=== PATIENT | male | born 1955 | race African-American/Black ===

== ENCOUNTER 2020-07-07 09:38 | Emergency (ER) | payer OTHER ==
[~2020-07-07] VITALS: Ht 182.9 cm; Wt 70.5 kg
[2020-07-07 09:59] VITALS: BP 146/96
[2020-07-07] MEDS ORDERED: METH4TAB2 PO (11:25)
--- NOTE | 2020-07-07 11:26 | PHYS DOC ---
General Adult EDM: Chief Complaint: LOWER EXT PAIN HPI: HPI: Patient is a 64 year old male who presents with here from [facility] for drug and alcohol abuse. Patient states that he has had a sharp shooting pain down the back of his right leg for 2 months since not getting better. Patient denies any kind of injury. He is ambulatory with a steady gait. He denies any numbness or tingling or coolness to the extremity, swelling or joint laxities. Rates his pain an 8 out of 10. Patient states he cannot take any NSAIDs. Review of Systems: Review of Systems: Constitutional: Denies fever or chills. [] Eyes: Denies change in visual acuity. [] HENT: Denies nasal congestion or sore throat. [] Respiratory: Denies cough or shortness of breath. [] Cardiovascular: Denies chest pain or edema. [] GI: Denies abdominal pain, nausea, vomiting, bloody stools or diarrhea. [] : Denies dysuria. [] Musculoskeletal: Denies back pain or joint pain. + Right leg pain [] Integument: Denies rash. [] Neurologic: Denies headache, focal weakness or sensory changes. [] Endocrine: Denies polyuria or polydipsia. [] Lymphatic: Denies swollen glands. [] Psychiatric: Denies depression or anxiety. [] Heart Score: Risk Factors: Risk Factors: DM, Current or recent (<one month) smoker, HTN, HLP, family history of CAD, obesity. Risk Scores: Score 0 - 3: 2.5% MACE over next 6 weeks - Discharge Home Score 4 - 6: 20.3% MACE over next 6 weeks - Admit for Clinical Observation Score 7 - 10: 72.7% MACE over next 6 weeks - Early Invasive Strategies Physical Exam: PE: Constitutional: Well developed, well nourished, no acute distress, non-toxic appearance. [] HENT: Normocephalic, atraumatic, bilateral external ears normal, oropharynx moist, no oral exudates, nose normal. [] Eyes: PERRLA, EOMI, conjunctiva normal, no discharge. [] Neck: Normal range of motion, no tenderness, supple, no stridor. [] Cardiovascular:Heart rate regular rhythm, no murmur [] Lungs & Thorax: Bilateral breath sounds clear to auscultation [] Abdomen: Bowel sounds normal, soft, no tenderness, no masses, no pulsatile masses. [] Skin: Warm, dry, no erythema, no rash. [] Back: No tenderness, no CVA tenderness. [] Extremities: No tenderness, no cyanosis, no clubbing, ROM intact, no edema. [] Neurologic: Alert and oriented X 3, normal motor function, normal sensory function, no focal deficits noted. [] Psychologic: Affect normal, judgement normal, mood normal. Normal physical exam [] EKG: EKG: [] Radiology/Procedures: Radiology/Procedures: [] Course & Med Decision Making: Course & Med Decision Making Pertinent Labs and Imaging studies reviewed. (See chart for details) See HPI. Alert and oriented x4. Ambulatory with a steady gait. No joint laxity or swelling or redness. No swelling to the leg, redness or deformities. Denies any back pain. Pedal pulse strong present. Skin pink warm and dry. Sensations intact. Patient will be given an orthopedic referral and a Medrol Dosepak. I told him he could take Tylenol or use a heating pad if needed. [] Dragon Disclaimer: Dragon Disclaimer: This electronic medical record was generated, in whole or in part, using a voice recognition dictation system. Departure Departure Impression: Primary Impression: Sciatica of right side Disposition: 01 DC HOME SELF CARE/HOMELESS Condition: STABLE Referrals: NO PCP (PCP) MARGIE PERRY MD Patient Instructions: Sciatica with [facility] Additional Instructions: Follow-up with orthopedic. Use a heating pad. Take Tylenol. Take Medrol Dosepak steroid to help with inflammation. If you begin having joint swelling or redness to the extremity return the emergency room. Scripts Methylprednisolone (MEDROL) 4 Mg Tab.ds.pk 1 PKG PO UD, #1 PKG Prov: YADIRA ANNE APRN 07/07/20 YADIRA ANNE APRN Jul 07, 2020 11:26
== END 2020-07-07 11:38 | disposition home or self-care (01) ==
LOC: ER 09:38
DX: M54.31 Sciatica, right side (principal)
CPT/HCPCS: 99283